=== PATIENT | male | born 1970 | race Caucasian/White ===

== ENCOUNTER 2024-05-03 14:17 | Emergency (ER) | payer OTHER, SELFPAY ==
[2024-05-03 14:20] VITALS: BP 136/87; PULSE 78; RESP 16; TEMP 36.7; O2SAT 98
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
[2024-05-03] MEDS: Lidocaine/Epinephri/Tetracaine Topical Gel 3 ML TP (15:15)
--- NOTE | 2024-05-03 15:23 | NUR.NOTE ---
Nursing Note: was reported to this RN by DIRECTOR OF [employer]LOBAL SALES that assisted with transport to CT scan that patient declined C-Spine precautions after risks were verbalized to patient Patient stood up and transferred self to CT table.
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
--- NOTE | 2024-05-09 15:04 | NUR.NOTE ---
Nursing Note: Pt called to let us know that the lac that was stapled here last saturday looks great and he asked if he could come in to have them removed today. per his discharge note from that visit, the dorene needed to remain in place for 7-10 days. Today is day 6 and he is aware. I told him that he could definitely come in and have the provider assess it to better determine if it would be acceptable to remove the dorene today but informed him that he might be asked to wait a few more days. He intends to come in today for assessment and hopeful removal of the dorene.
== END 2024-05-03 16:23 | disposition home or self-care (01) ==
PROVIDERS: Emergency Provider Emergency Medicine; PCP Nurse Practitioner
DX: S01.01XA Laceration without foreign body of scalp, initial encounter (principal); E03.9 Hypothyroidism, unspecified; V58.5XXA Driver of pick-up truck or van injured in noncollision transport accident in traffic accident, initial encounter
CPT/HCPCS: 12002; 99284; 70450; 72125; 99283

== ENCOUNTER 2024-05-09 16:15 | Emergency (ER) | payer SELFPAY ==
[2024-05-09 16:18] VITALS: BP 116/70; PULSE 72; RESP 16; TEMP 36.4; O2SAT 96
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
== END 2024-05-09 16:33 | disposition home or self-care (01) ==
LOC: ER 16:47
PROVIDERS: Emergency Provider Emergency Medicine Emergency Medical Services; PCP Nurse Practitioner
DX: Z48.02 Encounter for removal of sutures (principal)